=== PATIENT | male | born 1970 | race Caucasian/White ===

== ENCOUNTER 2017-04-15 12:18 | Outpatient (CLI) | payer OTHER ==
--- NOTE | 2017-04-15 14:53 | DIAGNOSTIC IMAGING REPORT ---
PROCEDURE: XR KNEE INJECTION (PRE MR) INDICATION: Right knee pain. Recent surgery. TECHNIQUE: The patient was advised of the usual risks and complications including infection, bleeding, and allergy. Supine position. Following sterile preparation and 1% lidocaine anesthetic, fluoroscopic guidance (2.3 minutes, 3/46.58 mGy) was utilized to place a 22- gauge needle into the lateral aspect of the right patellofemoral joint. A 20.1 ml solution (5 ml Isovue 200, 5 ml 1% lidocaine, 10 ml normal saline, 0.1 ml gadolinium) was infused. Subsequently, 2 mL 40 mg/mL Kenalog was infused and the needle was withdrawn. COMPARISON: Comparison made radiographs of the right knee from [facility] on 08/18/2016. FINDINGS: AP and lateral fluoroscopic views. Confirmation of intraarticular injection. Arthrogram appears normal. The patient tolerated the procedure reasonably well and was discharged home in satisfactory condition with instructions to resume routine activity the following day, and to call for any untoward symptoms (increasing pain/swelling). IMPRESSION: 1. Successful fluoroscopically guided diagnostic/therapeutic injection of the right knee joint (pre MRI). 2. MR arthrography is pending.
--- NOTE | 2017-04-15 16:34 | DIAGNOSTIC IMAGING REPORT ---
PROCEDURE: MR LOWER EXT JOINT W/CONT-RT INDICATION: Right knee pain and patellar tendonitis. TECHNIQUE: Intraarticular contrast (gadolinium) injected earlier in the day. PD and FAT-SAT PD sagittal and coronal images. FAT-SAT PD axial images. High-resolution T2 sagittal images of the cruciate ligaments. FAT-SAT T1 sagittal, axial, and coronal images were obtained. (Total of 9 sequences). COMPARISON: Comparison made radiographs of the right knee from [facility] on 08/18/2016. FINDINGS: There is mild chondromalacia of all three compartments. Menisci, collateral ligaments, cruciate ligaments appear normal. There is no evidence of meniscal tear. There is mild insertional tendinosis of the distal patellar tendon which is otherwise normal. Quadriceps tendon is normal. Osseous structures are normal. Suprapatellar plica (incidental finding). IMPRESSION: 1. 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 2. Mild insertional tendinosis of the distal patellar tendon. 3. Normal menisci, cruciate ligaments, collateral ligaments.
== END 2017-04-15 23:00 ==
LOC: XR SRH 12:18
PROC: BQ37YZZ Magnetic Resonance Imaging (MRI) of Right Knee using Other Contrast (ICD-10-PCS; principal; 2017-04-15)
PROC: 3E0U33Z Introduction of Anti-inflammatory into Joints, Percutaneous Approach (ICD-10-PCS; 2017-04-15)
PROC: BQ171ZZ Fluoroscopy of Right Knee using Low Osmolar Contrast (ICD-10-PCS; 2017-04-15)
DX: M17.11 Unilateral primary osteoarthritis, right knee (principal)